=== PATIENT | male | born 1955 | race Caucasian/White ===

== ENCOUNTER → 2020-05-29 06:49 | Outpatient (CLI) | payer MEDICARE, OTHER, SELFPAY ==
--- NOTE | 2020-05-29 06:51 | DI.US.S_ITS ---
PROCEDURE: US ABD AORTA ANEURYSM SCREEN INDICATIONS: SCREEN TECHNIQUE: Real time scanning was performed of the aorta and iliac arteries, with image documentation. COMPARISON: None. FINDINGS: Aorta: Proximal aortic diameter measures 1.9 cm. Mid-aorta measures 1.8 cm. Distal aortic diameter is 1.6 cm. Iliac arteries: Right common iliac artery measures 0.9 cm. Left common iliac artery measures 0.9 cm. IMPRESSION: No aneurysm found. Dictated by: Barry Thompson M.D. on 05/29/2020 at 8:53 Approved by: Barry Thompson M.D. on 05/29/2020 at 8:53
[2020-05-29 08:51] LABS: Alanine Aminotransferase 30 IU/L (<50); Albumin 4.7 g/dL (3.5-5.0); Albumin Globulin Ratio 1.4 (1.0-2.8); Alkaline Phosphatase 60 U/L (38-126); Aspartate Aminotransferase 33 IU/L (17-59); BUN Creatinine Ratio 14.3 (6-22); Bilirubin Total 0.7 mg/dL (0.2-1.3); Blood Urea Nitrogen 11 mg/dL (9-20); Calcium 9.7 mg/dL (8.4-10.2); Carbon Dioxide 29 mmol/L (22-32); Chloride 100 mmol/L (98-107); Cholesterol 210 mg/dL (140-199); Estimated Glomerular Filt Rate > 60.0 mL/min (>60); Globulin 3.3 g/dL (1.7-4.1); Glucose 93 mg/dL (80-110); HDL Cholesterol 97 mg/dL (40-60); HEMOLYSIS < 15 (0-50); LDL Cholesterol Calculated 102 mg/dL (<100); Potassium 4.1 mmol/L (3.4-5.1); Sodium 135 mmol/L (137-145); Triglycerides 55 mg/dL (35-150)
[2020-05-29 08:53] LABS: C-Reactive Protein Quant < 0.5 mg/dL (<1.0)
[2020-05-29 09:16] LABS: Prostate Specific Antigen Scrn 2.37 ng/mL (0.1-4.0)
== END ==
PROVIDERS: PCP Student in an Organized Health Care Education/Training Program; Referring Provider Student in an Organized Health Care Education/Training Program; Visit Provider Student in an Organized Health Care Education/Training Program
DX: Z13.6 Encounter for screening for cardiovascular disorders (principal); Z13.220 Encounter for screening for lipoid disorders; Z12.5 Encounter for screening for malignant neoplasm of prostate; E55.9 Vitamin D deficiency, unspecified; M19.90 Unspecified osteoarthritis, unspecified site; R21 Rash and other nonspecific skin eruption; Z87.891 Personal history of nicotine dependence
CPT/HCPCS: 36415; 76706; 80053; 80061; 82306; 86140; G0103

== ENCOUNTER → 2020-06-01 09:12 | Outpatient (CLI) | payer MEDICARE, OTHER, SELFPAY ==
[2020-06-01 10:11] LABS: COVID19 -Nasal RAPID Negative (Negative)
== END ==
PROVIDERS: PCP Student in an Organized Health Care Education/Training Program; Visit Provider Surgery
DX: Z20.822 Contact with and (suspected) exposure to COVID-19 (principal)
CPT/HCPCS: 87635; C9803

== ENCOUNTER 2020-06-02 07:26 | Day surgery (SDC) | payer MEDICARE, OTHER, SELFPAY ==
--- NOTE | 2020-06-02 | PATH_ITS ---
[facility] Accession Number: [id number] . 01 Material submitted: . colon - 20CM COLON POLYP . 01 Clinical history: . SCREENING COLONOSCOPY . 02 Diagnosis: Colon, 20 cm Polyp, Biopsy: Tubular adenoma. MRV 06/05/2020 1344 Local . 02 Electronically signed: . Tanna Hidalgo MD, Pathologist NPI- [id number] . 01 Gross description: . 20CM COLON POLYP: Received in formalin is 1 fragment(s) of dias, soft tissue measuring 0.4 x 0.4 x 0.3 cm submitted entirely in 1 cassette(s) /NATHAN 06/03/20202019 Local . 02 Pathologist provided ICD-10: D12.5 . 02 CPT . 901202 Performed at: 01 [facility] [address] [id number] MD Eduin Lyles MD Phone: [phone] Performed at: 02 [facility] [address] [place], [place] [id number] MD Tanna Hidalgo MD Phone: [phone]
[2020-06-02 08:01] VITALS: BP 140/98; PULSE 108; RESP 21; TEMP 36.6; O2SAT 96; BMI 25.7
[2020-06-02] MEDS: SODIUM CHLORIDE 0.9% 1,000 ML 200 ML IV (08:11)
--- NOTE | 2020-06-02 08:33 | PM.HP.1 ---
History of Present Illness History of Present Illness Date Patient Seen: 06/02/20 Time Patient Seen: 08:33 Chief complaint: SCREENING COLONOSCOPY Narrative: This is a 65-year-old man who comes in for screening colonoscopy. He had a colonoscopy tender 12 years ago, which he says was reported as normal. He denies any melena, hematochezia, unexplained abdominal pain, unexplained weight loss. He denies any family history of colon polyps or colon cancers. He has some tachycardia up to 120 this morning when he 1st came in. Got some IV fluids, and had an EKG checked. His EKG shows normal sinus rhythm, and his heart rate is down to 92 now. He denies any chest pain. His EKG is similar to the [address] Colón's office last month. ROS: Thirteen system review is otherwise negative other than as mentioned below and in HPI. PE: GENERAL: Well groomed and cooperative. Appears stated age. Answers questions promptly and appropriately. Vital signs noted. HENT: Normocephalic, atraumatic. Hearing intact. EYES: Conjunctiva pink, sclera white, no periorbital swelling. CARDIOVASCULAR: Regular rate. No pedal edema. RESPIRATORY: Non-tachypneic, breathing comfortably on room air. GASTROINTESTINAL: Abdomen soft and non-distended GENITALURINARY: No flank tenderness. MUSCULOSKELETAL: Equal tone and mass bilaterally. SKIN: Warm, dry, soft, appropriate color for ethnicity. No other lesions, rashes, or wounds. NEURO: Alert and Oriented X 3. No gross sensory deficits, or cognitive issues. PSYCH: Appropriate affect and mood. Patient History Medical History Chicken pox Measles Osteoarthritis Surgical History Anesthesia History of left hip replacement (~2012) Family & Social History Family History Father Leukemia Social History: household members spouse Tobacco & Substance use: Tobacco type cigarettes Smoking Status Current every day smoker Smoking packs per day 1 alcohol intake current alcohol intake frequency 3 or more drinks per day Substance Use Type does not use Meds Home Medications and Allergies Allergies Allergy/AdvReac Type Severity Reaction Status Date / Time No Known Drug Allergies Allergy Verified 06/02/20 07:47 Exam Vital Signs (past 8 hours): - 06/02/20 08:01 Temperature 97.8 F Pulse Rate 108 H Respiratory Rate 21 Blood Pressure 140/98 H Pulse Oximetry 96 Oxygen Delivery Method Room Air Assessment & Plan Assessment and plan (1) At average risk for colon cancer: Status: Acute Assessment & Plan narrative: Risks and benefits of screening colonoscopy and possible polypectomy were discussed with the patient including risk of bleeding, perforation, need for additional procedures, risks of anesthesia. The patient desires to proceed with the colonoscopy procedure. COVID-19 COVID-19 status: Negative Result date/Date tested (Pos, Neg/Pending): 06/01/20 Time Spent With Patient Time with patient: 15-24 minutes
--- NOTE | 2020-06-02 08:36 | P.OP.ENDO_ITS ---
Operative Date/Time/Diagnoses Date of procedure: 06/02/20 Time of procedure: 08:36 Pre-op diagnosis: Average risk for colon cancer. Due for screening colonoscopy. Post-op diagnosis: other (Rectal polyp) Procedure & Clinicians Study performed: Colonoscopy Procedural sedation performed by the endoscopist Polypectomy with cold snare Same procedure as scheduled: Yes Indications: Average risk of colon cancer, due for screening colonoscopy Surgeon: Gabrielle Núñez Procedure Notes SCOAP/Timeout: Performed Procedure in detail: The patient was brought to the room and placed in left lateral decubitus position with all bony prominences padded. A time-out was performed and then the patient was given procedural sedation starting with 4 mg of Versed and 100 mcg of fentanyl. A total of 6 mg of Versed and 150 micro g of fentanyl were given for the entire procedure. Vitals were monitored throughout the procedure and remained stable. Once adequately sedated, the procedure was begun. A rectal exam was performed revealingno abnormalities]. The colonoscope was then introduced to the rectum and advanced to the cecum in the usual fashion. ]The cecum was identified by the appendiceal orifice, the mucosal tri- fold, and the ileocecal valve. The scope was then retracted while rotating side to side and examining each mucosal fold. At 20 cm in the rectum a 5mm adenomatous appearing polyp was found and removed with cold snare. ] At the conclusion of the procedure retroflexion was performed and small grade 1-2 internal hemorrhoids without stigmata of bleeding were seen. The scope was then withdrawn from the rectum the procedure was concluded. The patient tolerated the procedure well and was transferred to the PACU in stable condition. Scope withdrawal time: 7 Sedation minutes: 25 Findings: polyp Specimen(s): none sent (Polyp) Complications: none Impression: Single polyp, precancerous/adenomatous appearing Post-procedure Recommendations: Other recommendation (Repeat colonoscopy in 5-10 years depending on pathology results) Follow up: as needed Disposition: PACU
[2020-06-02] MEDS: MIDAZOLAM 5 MG/5 ML VIAL IV (08:45)
[2020-06-02] MEDS: fentaNYL 250 MCG/5 ML INJ IV (08:45)
[2020-06-02 09:09] VITALS: BP 127/80; PULSE 82; RESP 18; TEMP 36; O2SAT 99
[2020-06-02 09:14] VITALS: BP 117/76; PULSE 78; RESP 16; O2SAT 98
[2020-06-02 09:19] VITALS: BP 113/72; PULSE 76; RESP 16; O2SAT 98
[2020-06-02 09:24] VITALS: BP 117/75; PULSE 80; RESP 14; O2SAT 98
[2020-06-02 09:29] VITALS: BP 122/78; PULSE 78; RESP 18; TEMP 36.4; O2SAT 99
== END 2020-06-02 09:40 | disposition home or self-care (01) ==
PROVIDERS: PCP Student in an Organized Health Care Education/Training Program; Referring Provider Student in an Organized Health Care Education/Training Program; Visit Provider Surgery
PROC: 0DJD8ZZ Inspection of Lower Intestinal Tract, Via Natural or Artificial Opening Endoscopic (ICD-10-PCS; CPT 45378; principal; 2020-06-02 08:30)
DX: Z12.11 Encounter for screening for malignant neoplasm of colon (principal); R00.0 Tachycardia, unspecified; F17.210 Nicotine dependence, cigarettes, uncomplicated; K64.0 First degree hemorrhoids; K62.1 Rectal polyp
CPT/HCPCS: 45385; 93005; 99152; J2250; J3010

== ENCOUNTER → 2020-10-21 10:00 | Outpatient (CLI) | payer MEDICARE, OTHER, SELFPAY ==
[2020-10-21 10:39] LABS: Add Manual Diff / Slide Review NO; Basophils Absolute Auto 100 /uL (0-100); Eosinophils Absolute Auto 100 /uL (0-450); Eosinophils Percent Auto 1.1 % (2-4); Hematocrit 46.3 % (41-53); Hemoglobin 15.6 g/dL (13.5-17.5); Lymphocytes Absolute Auto 1600 /uL (1100-4500); Lymphocytes Percent Auto 22.1 % (25-40); Mean Corpuscular HGB Conc 33.6 % (30-36); Mean Corpuscular Hemoglobin 32.6 PG (26-34); Monocytes Absolute Auto 600 /uL (0-900); Neutrophils Absolute Auto 5000 /uL (1500-7000); Neutrophils Percent Auto 67.8 % (50-75); Platelet Count 253 X10^3/uL (150-400); Red Blood Cell Count 4.77 X10^6/uL (4.5-5.9); Red Cell Distribution Width 13.2 % (11.6-14.8); White Blood Cell Count 7.4 X10^3/uL (4.5-11.0)
[2020-10-21 11:25] LABS: Alanine Aminotransferase 99 IU/L (<50); Albumin 4.4 g/dL (3.5-5.0); Albumin Globulin Ratio 1.5 (1.0-2.8); Alkaline Phosphatase 71 U/L (38-126); Aspartate Aminotransferase 108 IU/L (17-59); BUN Creatinine Ratio 6.2 (6-22); Bilirubin Total 0.7 mg/dL (0.2-1.3); Blood Urea Nitrogen 4 mg/dL (9-20); Calcium 9.6 mg/dL (8.4-10.2); Carbon Dioxide 24 mmol/L (22-32); Chloride 102 mmol/L (98-107); Estimated Glomerular Filt Rate > 60.0 mL/min (>60); Glucose 88 mg/dL (80-110); HEMOLYSIS < 15 (0-50); Lipase 73 U/L (23-300); Magnesium 2.2 mg/dL (1.6-2.3); Potassium 4.6 mmol/L (3.4-5.1); Sodium 134 mmol/L (137-145); Total Protein 7.4 g/dL (6.3-8.2)
[2020-10-21 11:40] LABS: Vitamin D 25 Hydroxy (D3) 32.9 ng/mL (30.0-100.0)
[2020-10-21 11:53] LABS: TSH w/ Reflex to FT4 1.81 uIU/mL (0.47-4.68)
[2020-10-21 12:12] LABS: Vitamin B12 639 pg/mL (239-931)
[2020-10-22 17:36] LABS: Tissue Transglutaminase IgA 12 U/mL (0-3); Tissue Transglutaminase IgG <2 U/mL (0-5)
== END ==
PROVIDERS: PCP Student in an Organized Health Care Education/Training Program; Referring Provider Student in an Organized Health Care Education/Training Program; Visit Provider Student in an Organized Health Care Education/Training Program
DX: R19.7 Diarrhea, unspecified (principal)
CPT/HCPCS: 36415; 80053; 82306; 82607; 83516; 83690; 83735; 84443; 85025

== ENCOUNTER → 2020-10-23 07:38 | Outpatient (CLI) | payer MEDICARE, OTHER, SELFPAY ==
[2020-10-23 11:54] LABS: Adenovirus F 40/41 Not Detected (Not Detect); Astrovirus Not Detected (Not Detect); Campylobacter Not Detected (Not Detect); Clostridium difficile toxin AB Not Detected (Not Detect); Cryptosporidium Not Detected (Not Detect); Cyclospora cayetanensis Not Detected (Not Detect); Entamoeba histolytica Not Detected (Not Detect); Enteroaggregative E.coli Not Detected (Not Detect); Enteropathogenic E.coli Not Detected (Not Detect); Enterotoxigenic E.coli It/st Not Detected (Not Detect); Giardia lamblia Not Detected (Not Detect); Norovirus GI/GII Not Detected (Not Detect); Plesiomonsa shigelloides Not Detected (Not Detect); Rotavirus A Not Detected (Not Detect); Salmonella Not Detected (Not Detect); Sapovirus Not Detected (Not Detect); Shiga-like toxin-prod E.coli Not Detected (Not Detect); Shigella/Enteroinvasive E.coli Not Detected (Not Detect); Vibrio Not Detected (Not Detect); Vibrio cholerae Not Detected (Not Detect); Yersinia enterocolitica Not Detected (Not Detect)
== END ==
PROVIDERS: PCP Student in an Organized Health Care Education/Training Program; Referring Provider Student in an Organized Health Care Education/Training Program; Visit Provider Student in an Organized Health Care Education/Training Program
DX: R19.7 Diarrhea, unspecified (principal)
CPT/HCPCS: 36415; 87507

== ENCOUNTER → 2020-11-03 08:32 | Outpatient (CLI) | payer MEDICARE, OTHER, SELFPAY ==
--- NOTE | 2020-11-03 08:33 | DI.US.S_ITS ---
PROCEDURE: US ABDOMEN LIMITED INDICATIONS: ELEVATED LIVER FUNCTION TESTS TECHNIQUE: Real-time focused scanning was performed of the abdomen, with image documentation. COMPARISON: [facility], US, US ABD AORTA ANEURYSM SCREEN, 05/29/2020, 7:45. FINDINGS: The liver demonstrates normal size. The liver demonstrates generalized moderately increased echogenicity. This decreases ultrasound sensitivity for detection of hepatic masses. Within the posterior lateral dome on the right, there is a shadowing focus seen 7. Likely fatty sparing can be seen within the ayden hepatis that measures 2.4 x 2 x 0.8 cm. A hypoechoic nonvascular lesion is seen along the inferior right liver (which appears just outside the liver) that measures 1.5 x 1.4 x 1.3 cm. No findings of gallstones or sludge are seen. The gallbladder wall is not thickened, measuring 3 mm or less. No specific pericholecystic fluid is seen. The sonographic Campos sign is negative. There is no biliary dilatation, the common bile duct measures 3 mm. No significant pancreatic abnormality is seen on these images. IMPRESSION: The liver demonstrates increased echogenicity. This finding is nonspecific, yet it is most commonly attributed to fatty infiltration. There is an area of likely fatty sparing seen. There is a hypoechoic focus seen along the right lobe of the liver inferiorly, which appears separate from the liver and may be related to a complex cyst or potentially a lymph node. If clinically appropriate, a dedicated CT of the abdomen and pelvis with IV and oral contrast could be considered for further evaluation. A 7 mm focus of benign-appearing calcification can be seen near the liver dome. Dictated by: Abraham Montero M.D. on 11/03/2020 at 8:25 Approved by: Abraham Montero M.D. on 11/03/2020 at 8:29
== END ==
PROVIDERS: PCP Student in an Organized Health Care Education/Training Program; Referring Provider Student in an Organized Health Care Education/Training Program; Visit Provider Student in an Organized Health Care Education/Training Program
DX: R19.7 Diarrhea, unspecified (principal); R94.5 Abnormal results of liver function studies
CPT/HCPCS: 76705

== ENCOUNTER → 2022-07-29 07:32 | Outpatient (CLI) | payer MEDICARE, OTHER, SELFPAY ==
--- NOTE | 2022-07-29 07:48 | DI.RAD.S_ITS ---
PROCEDURE: XR HIP W PEL IF DONE RT 2V INDICATIONS: Re-assess known right hip arthritis TECHNIQUE: AP pelvis with lateral view(s) of the right hip(s). COMPARISON: None. FINDINGS: Bones: No acute fractures or dislocations. Pelvic ring appears intact. No suspicious bony lesions. Status post left total hip arthroplasty without evidence for hardware complication. Moderate-severe degenerative changes of the right hip. Joint space narrowing. Subchondral sclerosis involving both sides of the joint. Soft tissues: The visualized bowel gas pattern is normal. No suspicious soft tissue calcifications. IMPRESSION: Moderate-severe right hip degenerative changes. No acute osseous abnormalities. Status post left total hip arthroplasty. Dictated by: David Hurtado M.D. on 07/29/2022 at 12:19 Approved by: David Hurtado M.D. on 07/29/2022 at 12:21
[2022-07-29 08:33] LABS: Add Manual Diff / Slide Review NO; Basophils Absolute Auto 100 /uL (0-100); Eosinophils Absolute Auto 100 /uL (0-450); Eosinophils Percent Auto 0.7 % (2-4); Hematocrit 43.7 % (41-53); Hemoglobin 15.1 g/dL (13.5-17.5); Lymphocytes Absolute Auto 1700 /uL (1100-4500); Lymphocytes Percent Auto 23.1 % (25-40); Mean Corpuscular HGB Conc 34.5 % (30-36); Mean Corpuscular Hemoglobin 33.2 PG (26-34); Mean Corpuscular Volume 96.3 fL (80-100); Monocytes Absolute Auto 800 /uL (0-900); Monocytes Percent Auto 10.2 % (3-14); Neutrophils Absolute Auto 4900 /uL (1500-7000); Platelet Count 235 X10^3/uL (150-400); Red Blood Cell Count 4.54 X10^6/uL (4.5-5.9); Red Cell Distribution Width 13.6 % (11.6-14.8); White Blood Cell Count 7.6 X10^3/uL (4.5-11.0)
[2022-07-29 08:43] LABS: Alanine Aminotransferase 48 IU/L (<50); Albumin 4.5 g/dL (3.5-5.0); Albumin Globulin Ratio 1.4 (1.0-2.8); Alkaline Phosphatase 69 U/L (38-126); Aspartate Aminotransferase 49 IU/L (17-59); BUN Creatinine Ratio 11.1 (6-22); Bilirubin Total 0.7 mg/dL (0.2-1.3); Blood Urea Nitrogen 8 mg/dL (9-20); Calcium 8.7 mg/dL (8.4-10.2); Carbon Dioxide 22 mmol/L (22-32); Chloride 97 mmol/L (98-107); Estimated Glomerular Filt Rate > 60 mL/min (>60); Globulin 3.2 g/dL (1.7-4.1); Glucose 108 mg/dL (80-110); HEMOLYSIS < 15 (0-50); Potassium 3.9 mmol/L (3.4-5.1); Sodium 130 mmol/L (137-145); Total Protein 7.7 g/dL (6.3-8.2)
[2022-07-29 09:08] LABS: Prostate Specific Antigen Scrn 2.19 ng/mL (0.1-4.0)
[2022-07-29 09:19] LABS: TSH w/ Reflex to FT4 2.71 uIU/mL (0.47-4.68)
[2022-07-29 09:27] LABS: Vitamin B12 371 pg/mL (239-931)
[2022-07-29 09:36] LABS: Hep C Virus Ab w/Reflex Quant NEGATIVE s/c (NEGATIVE)
== END ==
PROVIDERS: PCP Student in an Organized Health Care Education/Training Program; Referring Provider Student in an Organized Health Care Education/Training Program; Visit Provider Student in an Organized Health Care Education/Training Program
DX: I10 Essential (primary) hypertension (principal); Z12.5 Encounter for screening for malignant neoplasm of prostate; G57.90 Unspecified mononeuropathy of unspecified lower limb; Z11.59 Encounter for screening for other viral diseases; M16.11 Unilateral primary osteoarthritis, right hip
CPT/HCPCS: 36415; 73502; 80053; 82607; 84443; 85025; 86803; G0103